=== PATIENT | female | born 1995 | race Two or more races ===

== ENCOUNTER 2020-12-18 20:50 | Emergency (ER) | payer BC, OTHER ==
[~2020-12-18] VITALS: Ht 162.6 cm; Wt 74.0 kg
[2020-12-18 21:20] VITALS: BP 122/79
--- NOTE | 2020-12-18 21:48 | NUR ---
[employer]: PT. TO ROOM FROM LOBBY AT THIS TIME.
--- NOTE | 2020-12-18 22:27 | NUR ---
MD TO SEE PT AND EVAL, AND MD ORDERS RECEIVED.
[2020-12-18 23:06] LABS: MICROSCOPIC INDICATED
--- NOTE | 2020-12-18 23:57 | NUR ---
F/U AND D/C INSTRUCTIONS GIVEN TO PT AND SHE V/U. TO SPEAK WITH PT AND GAVE HER FINAL INSTRUCTIONS. PT AMBULATED TO D/C DESK.
== END 2020-12-18 23:59 | disposition home or self-care (01) ==
LOC: ED 21:20
DX: O26.892 Other specified pregnancy related conditions, second trimester (principal); R11.0 Nausea; Z90.49 Acquired absence of other specified parts of digestive tract; Z3A.14 14 weeks gestation of pregnancy
CPT/HCPCS: 76801; 81001; 87086; 99284